=== PATIENT | female | born 2000 | race Two or more races ===

== ENCOUNTER 2020-12-28 21:53 | Outpatient (CLI) | payer MEDICAID, OTHER ==
[~2020-12-28] VITALS: Ht 162.6 cm; Wt 104.0 kg
[2020-12-28 22:27] VITALS: BP 130/72
[2020-12-28 22:27] LABS: MICROSCOPIC INDICATED
== END 2020-12-29 01:05 | disposition home or self-care (01) ==
LOC: LDOP 21:53
PROVIDERS: ATTEND Obstetrics & Gynecology
DX: O26.892 Other specified pregnancy related conditions, second trimester (principal); R10.9 Unspecified abdominal pain; Z3A.20 20 weeks gestation of pregnancy
CPT/HCPCS: 76815; 76817; 81001; 87086; 99211; G0463

== ENCOUNTER 2021-03-31 09:58 | Outpatient (CLI) | payer OTHER ==
[2021-03-31 10:32] LABS: MICROSCOPIC INDICATED
[2021-03-31] MEDS ORDERED: ASPI81TA59 PO (10:32)
[2021-03-31] MEDS ORDERED: LABE300T2 PO (10:34)
[2021-03-31 11:22] LABS: ALANINE AMINOTRANSFERASE 20 U/L (12-78); ALBUMIN 2.7 g/dL (3.4-5.0); ANION GAP 5 mmol/L (5-15); BASOPHILS % (AUTO) 1 % (0-1); CALCIUM 8.7 mg/dL (8.5-10.1); CHLORIDE 109 mmol/L (98-107); EOSINOPHILS % (AUTO) 1 % (1-7); LYMPHOCYTES % (AUTO) 20 % (22-44); MEAN CORPUSCULAR HEMOGLOBIN 28.8 pg (27.0-34.8); MEAN CORPUSCULAR HGB CONC 33.3 g/dL (32.4-35.8); MEAN PLATELET VOLUME 8.8 fL (7.4-10.4); MONOCYTES % (AUTO) 6 % (2-9); NEUTROPHILS % (AUTO) 72 % (42-75); PLATELET COUNT 287 x10^3/uL (130-400); RED CELL DISTRIBUTION WIDTH 14.4 % (9.6-15.2)
[2021-03-31 11:25] LABS: ALKALINE PHOSPHATASE 140 U/L (45-117); BILIRUBIN,TOTAL 0.2 mg/dL (0.2-1.0); CREATININE 0.46 mg/dL (0.55-1.02); TOTAL PROTEIN 6.8 g/dL (6.4-8.2)
[2021-03-31 11:32] LABS: BILIRUBIN, DIRECT < 0.1 mg/dL (0.1-0.2)
== END 2021-03-31 12:05 | disposition home or self-care (01) ==
LOC: LDOP 09:58
PROVIDERS: ATTEND Obstetrics & Gynecology
DX: O98.513 Other viral diseases complicating pregnancy, third trimester (principal); O16.3 Unspecified maternal hypertension, third trimester; Z3A.33 33 weeks gestation of pregnancy
CPT/HCPCS: 36415; 59025; 80053; 81001; 82248; 82570; 84156; 84550; 85025; 87635